=== PATIENT | male | born 1960 ===

== ENCOUNTER 2021-10-17 04:06 | Day surgery (SDC) | payer OTHER ==
[2021-10-14 15:57] VITALS: BMI 22.8
[2021-10-17] MEDS ORDERED: PIPERACILLIN/TAZOBACTAM 3.375 GM VIAL IVPB ONE (09:45)
[2021-10-17] MEDS ORDERED: BUPIVACAINE LIPOSOME/PF (EXPAREL) 266 MG/20 ML VIAL ONE (10:04)
[2021-10-17] MEDS ORDERED: MIDAZOLAM HCL 2 MG/2 ML SINGLE DOSE VIAL ONE ×4 (10:06→10:30)
[2021-10-17] MEDS ORDERED: LIDOCAINE HCL/PF 2% SDV 5ML VIAL ONE (10:28)
[2021-10-17] MEDS ORDERED: PROPOFOL 20 ML ONE ×2 (10:29)
[2021-10-17] MEDS ORDERED: ONDANSETRON 4 MG/2 ML VIAL IVPUSH PRN (12:18)
[2021-10-17] MEDS ORDERED: oxyCODONE HCL 5 MG TABLET PO PRN ×2 (12:18→16:38)
[2021-10-17] MEDS ORDERED: LACTATED RINGERS SOLUTION 1,000 ML IV SCH (12:30)
[2021-10-17] MEDS ORDERED: oxyCODONE HCL 5 MG TABLET ONE ×2 (15:53→16:32)
[2021-10-17] MEDS ORDERED: ALBUTEROL SO4 0.083% IH SOL 2.5 MG/3 ML VIAL.NEB. NEB ONE ×2 (16:02→16:05)
[2021-10-17 19:54] VITALS: BP 139/82; PULSE 72; TEMP 98.3
== END 2021-10-17 19:50 | disposition home or self-care (01) ==
LOC: JASU-SURG 04:06 → EDSTATUS 13:00 → JASU-SURG 19:50
PROVIDERS: ATTEND Surgery
PROC: 0YU50JZ Supplement Right Inguinal Region with Synthetic Substitute, Open Approach (ICD-10-PCS; principal; 2021-10-17 11:05)
DX: K40.90 Unilateral inguinal hernia, without obstruction or gangrene, not specified as recurrent (principal); I10 Essential (primary) hypertension
CPT/HCPCS: 94640; 94760